=== PATIENT | female | born 1935 | race Caucasian/White ===

== ENCOUNTER → 2017-04-12 | Outpatient (CLI) | payer MEDICARE ==
[~2017-04-12] MED LIST: ASPIRIN81 MG PO; CALCIUM + D SO1 EACH PO; FISH OIL 1,0001 EAC5 PO; GLUCOTROL 10 MG10 MG PO; HUMALOG100 UNIT/1 SC; HUMALOG100 UNIT/3 SQ; LASIX40 MG PO; LEVEMIR100 UNIT/1 SC; LEVEMIR100 UNIT/1 SQ; LEVOTHYROXINE50 MCG PO; LEXAPRO10 MG PO; LIPITOR TAB 2020 MG PO; LOPRESSOR 25 MG25 MG PO; MACROBID 100 M100 MG PO; MULTIVITAMINS1 EAC1 PO; NEURONTIN 300300 MG PO; NORCO 5-325 TA1 EACH PO; POTASSIUM CHLO20 ME1 PO
== END ==
LOC: HEART 5 07:52
DX: E11.65 Type 2 diabetes mellitus with hyperglycemia (principal); E78.5 Hyperlipidemia, unspecified; G45.9 Transient cerebral ischemic attack, unspecified; R60.9 Edema, unspecified; I25.9 Chronic ischemic heart disease, unspecified; I11.9 Hypertensive heart disease without heart failure
CPT/HCPCS: 78452; A9502; J2785

== ENCOUNTER → 2021-04-13 | Outpatient (CLI) | payer MEDICARE ==
[~2021-04-13] MED LIST changes: +ADVIL ALLERGY1 EACH PO; +BACTRIM DS TAB1 EACH PO; +CEFUROXIME500 MG PO; +FLORANEX GRANU1 EACH PO; +FORTEO 250250 MCG/ML SC; -GLUCOTROL 10 MG10 MG PO; +GLUCOTROL5 MG PO; +IPRAT-ALBUT 0.5-3 ML INH; +K-DUR TAB 20 M20 MEQ PO; -LOPRESSOR 25 MG25 MG PO; +LORTAB 7.5-3251 EACH PO; +LYRICA25 MG PO; +MAGOX 400400 MG PO; +METOPROLOL TART50 MG PO; +POTASSIUM CHLO20 ME2 PO; +PROVERA10 MG PO; +QUETIAPINE FUMA25 MG PO; +SERTRALINE HCL50 MG PO; +TOPROL XL50 MG PO; +TOUJEO MAX300 UNIT/1 SQ; +TRULICITY0.75 MG/0. SQ; +VANCOMYCIN HCL250 MG PO; +VENTOLIN/PROVE0.5 ML INH; +VITAMIN D32000 UNI1 PO; +ZANTAC150 MG PO; +[UNRECOGNIZED DRUG - CODE] SQ
== END ==
LOC: KOH-I 10:00
DX: H90.3 Sensorineural hearing loss, bilateral (principal); H73.891 Other specified disorders of tympanic membrane, right ear; H70.91 Unspecified mastoiditis, right ear
CPT/HCPCS: 70480

== ENCOUNTER 2021-04-27 07:47 | Emergency (ER) | payer MEDICARE ==
[2021-04-27 09:51] LABS: HEMOGLOBIN 16.2 gm/dl (12.3-15.3); RED BLOOD COUNT 5.43 M/UL (4.00-5.10); WHITE BLOOD COUNT 9.3 K/UL (4.5-11.0)
[2021-04-27 10:19] LABS: BUN/CREATININE RATIO 22 (0-10)
== END 2021-04-27 12:48 | disposition short-term general hospital (02) ==
LOC: ER1 07:47
PROVIDERS: Physician Assistant
DX: S06.5X0A Traumatic subdural hemorrhage without loss of consciousness, initial encounter (principal); S32.512A Fracture of superior rim of left pubis, initial encounter for closed fracture; J44.9 Chronic obstructive pulmonary disease, unspecified; E11.40 Type 2 diabetes mellitus with diabetic neuropathy, unspecified; I11.0 Hypertensive heart disease with heart failure; I50.9 Heart failure, unspecified; Z88.1 Allergy status to other antibiotic agents; W01.10XA Fall on same level from slipping, tripping and stumbling with subsequent striking against unspecified object, initial encounter; Y93.E8 Activity, other personal hygiene; Y92.002 Bathroom of unspecified non-institutional (private) residence as the place of occurrence of the external cause
CPT/HCPCS: 51702; 70450; 71045; 72128; 73030; 73502; 80053; 82550; 82553; 83874; 84484; 85025; 93005; 96374; 96375; 99285; J2270; J2405

== ENCOUNTER → 2021-08-19 | Day surgery (SDC) | payer MEDICARE ==
[~2021-08-19] MED LIST changes: +ASPIRIN CHEWABL81 MG PO; +HUMALOG100 UNIT/3 SC; +NEURONTIN300 MG PO; +TRULICITY3 MG/0.5 M SQ
== END | disposition home or self-care (01) ==
LOC: OR 05:58
DX: D12.9 Benign neoplasm of anus and anal canal (principal); K62.82 Dysplasia of anus; K64.4 Residual hemorrhoidal skin tags; K92.2 Gastrointestinal hemorrhage, unspecified; I50.32 Chronic diastolic (congestive) heart failure; I25.10 Atherosclerotic heart disease of native coronary artery without angina pectoris; K22.70 Barrett's esophagus without dysplasia; I65.29 Occlusion and stenosis of unspecified carotid artery; E11.42 Type 2 diabetes mellitus with diabetic polyneuropathy; I10 Essential (primary) hypertension; J44.9 Chronic obstructive pulmonary disease, unspecified; G56.00 Carpal tunnel syndrome, unspecified upper limb; F41.8 Other specified anxiety disorders; K76.0 Fatty (change of) liver, not elsewhere classified; E78.5 Hyperlipidemia, unspecified; E03.9 Hypothyroidism, unspecified; E55.9 Vitamin D deficiency, unspecified; Z20.822 Contact with and (suspected) exposure to COVID-19
CPT/HCPCS: 82962; J2704; J7030

== ENCOUNTER → 2022-06-23 | Outpatient (CLI) | payer MEDICARE | LOC: WCC 07:07 | DX: E11.621 Type 2 diabetes mellitus with foot ulcer (principal); E11.622 Type 2 diabetes mellitus with other skin ulcer; I83.018 Varicose veins of right lower extremity with ulcer other part of lower leg; L97.525 Non-pressure chronic ulcer of other part of left foot with muscle involvement without evidence of necrosis; L97.822 Non-pressure chronic ulcer of other part of left lower leg with fat layer exposed; I11.0 Hypertensive heart disease with heart failure; I50.23 Acute on chronic systolic (congestive) heart failure; E11.51 Type 2 diabetes mellitus with diabetic peripheral angiopathy without gangrene; E11.42 Type 2 diabetes mellitus with diabetic polyneuropathy; I25.10 Atherosclerotic heart disease of native coronary artery without angina pectoris; R60.1 Generalized edema; E66.01 Morbid (severe) obesity due to excess calories; Z79.4 Long term (current) use of insulin; Z68.32 Body mass index [BMI] 32.0-32.9, adult ==

== ENCOUNTER → 2022-07-01 | Outpatient (CLI) | payer MEDICARE | LOC: WCC 07:55 | DX: E11.621 Type 2 diabetes mellitus with foot ulcer (principal); L97.522 Non-pressure chronic ulcer of other part of left foot with fat layer exposed; I11.0 Hypertensive heart disease with heart failure; I50.43 Acute on chronic combined systolic (congestive) and diastolic (congestive) heart failure; I73.9 Peripheral vascular disease, unspecified; I25.10 Atherosclerotic heart disease of native coronary artery without angina pectoris; E66.01 Morbid (severe) obesity due to excess calories; E11.42 Type 2 diabetes mellitus with diabetic polyneuropathy ==

== ENCOUNTER → 2022-07-15 | Outpatient (CLI) | payer MEDICARE | END | disposition home or self-care (01) | LOC: WCC 07:53 | DX: E11.621 Type 2 diabetes mellitus with foot ulcer (principal); L97.522 Non-pressure chronic ulcer of other part of left foot with fat layer exposed; L97.521 Non-pressure chronic ulcer of other part of left foot limited to breakdown of skin; E11.51 Type 2 diabetes mellitus with diabetic peripheral angiopathy without gangrene; I11.0 Hypertensive heart disease with heart failure; I50.23 Acute on chronic systolic (congestive) heart failure; I83.018 Varicose veins of right lower extremity with ulcer other part of lower leg; I25.10 Atherosclerotic heart disease of native coronary artery without angina pectoris; E11.42 Type 2 diabetes mellitus with diabetic polyneuropathy; E66.01 Morbid (severe) obesity due to excess calories; Z79.4 Long term (current) use of insulin; Z79.899 Other long term (current) drug therapy; Z68.32 Body mass index [BMI] 32.0-32.9, adult ==